=== PATIENT | female | born 1975 | race Caucasian/White ===

== ENCOUNTER 2019-11-29 15:30 | Outpatient (RCR) | payer OTHER, SELFPAY ==
--- NOTE | 2019-10-23 09:35 | PTOPEVAL ---
PHYSICAL THERAPY EVALUATION AND PLAN OF CARE Thank you for referring Mili Hurley to [facility]. I recommend Mili participate in PT 1-2x/week for 3-4weeks. Please review, sign, date and return this plan of care JOSE. I agree with and certify that the following plan of care is medically necessary. Referring Physician Date Attending Provider: Esther Haywood, WATER SUPPLY ENGINEER-BC Evaluation Diagnosis right shoulder pain/neck pain Onset 3 weeks ago Subjective Information Reports that 3 weeks ago she Query Text:As Reported By Patient/ was pulling on a dresser and Family she felt somehting in her right shoulder. Her right shoulder generally has mild chronic pain that she typically does get massages on . Also notes that her neck seems to have restricted motion. Also reports that last week she noticed a heaviness in the right arm when working on the computer. Prior Level of Function Activity Level (Last 3 Months) Hand Dominance Right Pain Scale Used Numeric (1 - 10) Self Report Pain Assessment Right Shoulder(s) Reported Pain Level 5 Pain Description Aching,Heavy Pain Frequency Acute Lowest Pain Intensity 3 Greatest Pain Intensity 9 Other Pain Aggravating Factors computer work; sleeping Cervical Cervical Rotation Right (0-90) 55 Query Text:Active in Degrees Cervical Rotation Left (0-90) 65 Query Text:Active in Degrees Cervical ROM Comments left cervical rotation produces slight thoracic rotation Scapular/ Shoulder Range of Motion Left Shoulder Flexion - Active 50 Shoulder Abduction - Active 155 Right Shoulder Flexion - Active 150 Shoulder Abduction - Active 135 Shoulder Medial Rotation - Active L1 Query Text:Reach Behind the Back Shoulder Lateral Rotation - Active 85 Upper Extremity Muscle Strength Testing Scapular/Shoulder Left Shoulder Flexion Strength 5 Normal Shoulder Abduction Strength 5 Normal Shoulder Medial Rotation Strength 5 Normal Shoulder Lateral Rotation Strength 5 Normal Right Shoulder Flexion Strength 4 Good Shoulder Abduction Strength 4 Good Shoulder Medial Rotation Strength 4+ Good + Shoulder Lateral Rotation Strength 4+ Good + Muscle Length Testing Scalene Group Muscle Length (R) Severe Tightness Query Text: Scalenes Posterior Muscle Length (R) Severe Tightness Query Text:
--- NOTE | 2019-11-15 13:42 | PCPTNOTE ---
Patient called & cancelled scheduled appointment this date due to being sick.
--- NOTE | 2019-11-29 16:39 | PTOPEVAL ---
PHYSICAL THERAPY DISCHARGE NOTE Thank you for referring Mili Hurley to [facility]. Please review, sign, date and return this plan of care JOSE. I agree with and certify that the following plan of care is medically necessary. Referring Physician Date Attending Provider: Esther Haywood, SYSTEM DEVELOPMENT ENGINEER-BC DISCHARGE Diagnosis right shoulder pain/neck pain Onset 7 weeks ago Subjective Information Mili reports that she is Query Text:As Reported By Patient/ feeling much improved. Notes Family that after her last visit she was feeling really great. Admits that she took a few days off of dong her HEP and started to notice symptoms returning. She started to perform her HEP again and noted an improvement. Now understands that she will need to continue HEP. Self Report Pain Level 0 Pain Score Pain Score 0: Self Report Cervical and Lumbar ROM Cervical ROM Cervical Rotation Right (0-90) 65 Query Text:Active in Degrees Cervical Rotation Left (0-90) 65 Query Text:Active in Degrees Upper Extremity Range of Motion Scapular/ Shoulder Range of Motion Left Shoulder Flexion - Active 155 Shoulder Abduction - Active 155 Right Shoulder Flexion - Active 155 Shoulder Abduction - Active 155 Shoulder Medial Rotation - Active T12 Query Text:Reach Behind the Back Shoulder Lateral Rotation - Active 85 Shoulder Lateral Rotation - Active T4 Query Text:Reach Behind the Head Upper Extremity Muscle Strength Testing Scapular/Shoulder Left Shoulder Flexion Strength 5 Normal Shoulder Abduction Strength 5 Normal Shoulder Medial Rotation Strength 5 Normal Shoulder Lateral Rotation Strength 5 Normal Right Shoulder Flexion Strength 4+ Good + Shoulder Abduction Strength 4+ Good + Shoulder Medial Rotation Strength 5 Normal Shoulder Lateral Rotation Strength 5 Normal Muscle Length Testing Scalenes Posterior Muscle Length (R) Moderate Tightness Query Text: Scalenes Anterior Muscle Length (R) Moderate Tightness Query Text: Upper Trapezius Muscle Length (R) Mild Tightness,(L) Mild Tightness Levaetor Scapulae Muscle Length (L) Mild Tightness,(R) Moderate Tightness Muscle Length Testing Comments patient is aware of home exercise program to continue improving muscle length and flexibility Posture Head/C-Spine Postu
== END 2019-11-30 08:45 | disposition home or self-care (01) ==
LOC: ANHPT 15:30
PROVIDERS: PCP Nurse Practitioner Family; Visit Provider Nurse Practitioner Family
DX: T14.8XXD Other injury of unspecified body region, subsequent encounter (principal)
CPT/HCPCS: 97110; 97140; 97161

== ENCOUNTER → 2020-07-16 07:21 | Outpatient (CLI) | payer OTHER, SELFPAY ==
--- NOTE | ~2020-07-16 | MM_ITS ---
EXAMINATION: MM screening [facility] BI w khari HISTORY: Screening mammogram TECHNIQUE: Craniocaudal and mediolateral oblique 3-D tomosynthesis images were obtained and synthetic 2-D images were generated. CAD analysis was submitted and interpreted. COMPARISON: 09/30/2018, 11/03/2016, 03/10/2016, 08/21/2015, 08/20/2015 BREAST PARENCHYMAL COMPOSITION: There are scattered areas of fibroglandular density. FINDINGS: Stable intramammary lymph nodes are noted. There is no evidence of suspicious mass, calcifi cation, or architectural distortion to suggest malignancy in either breast. There has been no suspici ous interval change. IMPRESSION: 1. No mammographic evidence of malignancy. 2. Recommend routine screening mammography in one year. BI-RADS Category 2: Benign finding(s). Reviewed, dictated and finalized at location A. ING [employer] P[employer] HAND
== END ==
PROVIDERS: Visit Provider Obstetrics & Gynecology
DX: Z12.31 Encounter for screening mammogram for malignant neoplasm of breast (principal)
CPT/HCPCS: 77063; 77067

== ENCOUNTER 2021-01-09 12:06 | Outpatient (CLI) | payer OTHER, SELFPAY ==
[2021-01-09 13:03] LABS: Basophils Absolute Auto 0.1 K/mm3 (0.0-0.1); Basophils Percent Auto 0.7 % (0.2-1.2); Eosinophils Absolute Auto 0.1 K/mm3 (0-0.3); Eosinophils Percent Auto 1.9 % (0-4.4); Hematocrit 41.8 % (37.0-47.0); Hemoglobin 13.9 g/dL (12.0-15.0); Immature Granulocyte Absolute 0.02 K/mm3 (0.00-0.031); Immature Granulocyte Percent A 0.3 % (0-0.5); Lymphocytes Absolute Auto 2.77 K/mm3 (0.9-3.2); Lymphocytes Percent Auto 36.7 % (18.3-44.2); Mean Corpuscular HGB Conc 33.3 g/dl (32-36); Mean Corpuscular Hemoglobin 28.8 pg (26-34); Mean Corpuscular Volume 86.7 fl (80-100); Mean Platelet Volume 8.4 fl (7.4-10.4); Monocytes Absolute Auto 0.7 K/mm3 (0.1-0.6); Monocytes Percent Auto 8.6 % (2.6-8.5); Neutrophils Absolute Auto 3.9 K/mm3 (1.3-6.7); Neutrophils Percent Auto 51.8 % (45.5-73.1); Platelet Count Result 314 k/mm3 (150-375); Red Blood Count 4.82 M/mm3 (4.2-5.4); White Blood Count 7.5 K/mm3 (4.5-10.0)
[2021-01-09 13:22] LABS: Alanine Aminotransferase 35 U/L (4-35); Albumin Level 4.7 g/dL (3.5-5.1); Alkaline Phosphatase 91 U/L (38-126); Anion Gap 10 mmol/L (8-16); Aspartate Amino Transferase 38 U/L (14-36); Bilirubin,Total 1.6 mg/dL (0.2-1.3); Blood Urea Nitrogen 15 mg/dL (7-17); Calcium 9.4 mg/dL (8.4-10.2); Carbon Dioxide 27 mmol/L (22-30); Chloride 103 mmol/L (98-107); Estimated Glomerular Filt Rate > 60; Glucose 83 mg/dL (65-105); Potassium 4.2 mmol/L (3.4-5.0); Sodium 140 mmol/L (137-145)
[2021-01-09 13:47] LABS: Free T4 Free Thyroxine 1.23 ng/mL (0.78-2.19)
[2021-01-09 13:57] LABS: Erythrocyte Sedimentation Rate 17 mm/hr (0-20)
[2021-01-09 19:18] LABS: Rheumatoid Factor < 8.6 IU/ML (<12)
[2021-01-13 02:45] LABS: Thyroid Peroxidase Antibodies 18 IU/mL (<9)
[2021-01-13 16:33] LABS: Albumin 4.3 g/dL (3.8-4.8); Alpha 1 Globulin 0.3 g/dL (0.2-0.3); Alpha 2 Globulin 0.7 g/dL (0.5-0.9); Beta 1 Globulin 0.5 g/dL (0.4-0.6); Protein, Total 7.2 g/dL (6.1-8.1)
[2021-01-14 20:14] LABS: Creatinine, Random Urine 86 mg/dL (20-275); Total Protein/Creatinine Ratio 81 mg/g creat (21-161)
[2021-01-14 23:07] LABS: Anti Nuclear Antibody Titer 1:40 (Negative)
== END 2021-01-09 12:07 | disposition home or self-care (01) ==
LOC: ANHLAB 12:10
PROVIDERS: PCP Nurse Practitioner Family
DX: R21 Rash and other nonspecific skin eruption (principal)
CPT/HCPCS: 36415; 80053; 82570; 84155; 84156; 84165; 84166; 84439; 84443; 85025; 85652; 86038; 86039; 86376; 86430

== ENCOUNTER 2021-03-13 11:25 | Outpatient (CLI) | payer OTHER, SELFPAY ==
[2021-03-13 13:19] LABS: Rheumatoid Factor < 8.6 IU/ML (<12)
[2021-03-15 04:15] LABS: Thyroid Peroxidase Antibodies 12 IU/mL (<9)
[2021-03-16 21:07] LABS: Anti Nuclear Antibody Titer 1:40 (Negative)
== END 2021-03-13 11:26 | disposition home or self-care (01) ==
PROVIDERS: PCP Nurse Practitioner Family; Visit Provider Nurse Practitioner Family
DX: R89.9 Unspecified abnormal finding in specimens from other organs, systems and tissues (principal)
CPT/HCPCS: 36415; 84443; 86038; 86039; 86376; 86430

== ENCOUNTER 2021-09-01 07:22 | Outpatient (CLI) | payer OTHER, SELFPAY ==
[2021-09-01 08:56] LABS: Alanine Aminotransferase 21 U/L (4-35); Albumin Level 4.2 g/dL (3.5-5.1); Alkaline Phosphatase 91 U/L (38-126); Anion Gap 6 mmol/L (8-16); Aspartate Amino Transferase 27 U/L (14-36); Bilirubin,Total 0.7 mg/dL (0.2-1.3); Blood Urea Nitrogen 16 mg/dL (7-17); Calcium 8.2 mg/dL (8.4-10.2); Carbon Dioxide 26 mmol/L (22-30); Chloride 107 mmol/L (98-107); Glucose 95 mg/dL (65-110); Potassium 4.1 mmol/L (3.4-5.0); Sodium 139 mmol/L (137-145); Uric Acid 4.1 mg/dL (2.5-7.5)
[2021-09-01 10:35] LABS: Folic Acid 7.3 ng/mL (2.76->20)
[2021-09-03 03:20] LABS: Thyroid Peroxidase Antibodies 7 IU/mL (<9)
[2021-09-03 05:09] LABS: Progesterone 0.3 ng/mL (***); Triiodothyronine T3 Free 2.8 pg/mL (2.3-4.2)
[2021-09-06 22:56] LABS: Estradiol, Ultrasensitive 12 pg/mL
== END 2021-09-01 07:23 | disposition home or self-care (01) ==
PROVIDERS: PCP Nurse Practitioner Family; Visit Provider Internal Medicine Endocrinology, Diabetes & Metabolism
DX: E06.3 Autoimmune thyroiditis (principal); N95.9 Unspecified menopausal and perimenopausal disorder
CPT/HCPCS: 36415; 80053; 82607; 82670; 82746; 84144; 84439; 84443; 84481; 84550; 86376

== ENCOUNTER → 2021-09-02 09:38 | Outpatient (CLI) | payer OTHER, SELFPAY ==
--- NOTE | ~2021-09-02 | US_ITS ---
US thyroid INDICATION: Nontoxic goiter TECHNIQUE: Real-time sonographic images of the thyroid gland were obtained. COMPARISON: No prior studies for comparison. FINDINGS: The right thyroid lobe measures 4.6 x 1.6 x 2.9 cm. The left thyroid lobe measures 4.4 x 1 .5 x 1.2 cm. There is normal echotexture and echogenicity throughout the thyroid gland. No discrete n odules identified. Normal vascular flow is present. IMPRESSION: 1. Normal thyroid without discrete nodule or abnormal vascularity. Reviewed, dictated and finalized at location B. ED FRAMES ASSEMBLER
== END ==
PROVIDERS: PCP Nurse Practitioner Family; Visit Provider Internal Medicine Endocrinology, Diabetes & Metabolism
DX: E04.9 Nontoxic goiter, unspecified (principal)
CPT/HCPCS: 76536

== ENCOUNTER → 2022-01-23 07:14 | Outpatient (CLI) | payer OTHER, SELFPAY ==
--- NOTE | ~2022-01-23 | MM_ITS ---
EXAMINATION: MM screening [facility] BI w khari HISTORY: Screening mammogram TECHNIQUE: Craniocaudal and mediolateral oblique 3-D tomosynthesis images were obtained and synthetic 2-D images were generated. CAD analysis was submitted and interpreted. COMPARISON: 07/16/2020, 09/30/2018 BREAST PARENCHYMAL COMPOSITION: There are scattered areas of fibroglandular density. FINDINGS: RIGHT BREAST: There is a possible mass in the anterior third of the lower breast 4 cm from the nipple . LEFT BREAST: There is no suspicious mass, calcification, or architectural distortion to suggest malig ruth. There has been no significant interval change. IMPRESSION: 1. Possible right breast mass. 2. Additional mammographic views and possible breast ultrasound are recommended. BI-RADS Category 0: Incomplete: Needs additional imaging evaluation. Reviewed, dictated and finalized at location A. IMPRESSION: 1. Possible right breast mass. 2. Additional mammographic views and possible breast ultrasound are recommended . BI-RADS Category 0: Incomplete: Needs additional imaging evaluation.
== END ==
PROVIDERS: PCP Nurse Practitioner Family; Visit Provider Obstetrics & Gynecology
DX: Z12.31 Encounter for screening mammogram for malignant neoplasm of breast (principal); R92.8 Other abnormal and inconclusive findings on diagnostic imaging of breast
CPT/HCPCS: 77063; 77067

== ENCOUNTER → 2022-03-02 09:33 | Outpatient (CLI) | payer OTHER, SELFPAY ==
--- NOTE | ~2022-03-02 | MMUS_ITS ---
EXAMINATION: MM diagnostic [facility] RT w khari, US breast RT limited HISTORY: Follow-up right breast asymmetry TECHNIQUE: Additional 3-D tomosynthesis images of the right breast were performed and synthetic 2-D i mages were generated. CAD analysis was submitted and interpreted. High resolution Limited right breas t ultrasound was performed. COMPARISON: Comparison to multiple prior studies sequentially, with oldest reviewed study dated 11/03. BREAST PARENCHYMAL COMPOSITION: Breast composed of scattered areas of fibroglandular density. FINDINGS: MAMMOGRAPHIC FINDINGS: There is a small mass in the lower central aspect of the right breast anteriorly. There are no suspic ious calcifications or architectural distortion. ULTRASOUND: Limited right breast ultrasound: At 7:00, 4 cm from the nipple there is an oval hypoechoic mass measu ring 7 x 3 x 2 mm with echogenic hilum, most likely benign intramammary lymph node. There is a small cyst at 9:00, 4 cm from the nipple measuring 2 mm. IMPRESSION: 1. Probable benign right breast mass located at 7:00, 4 cm from the nipple. 2. Recommend 6 month follow-up Limited right breast ultrasound. BI-RADS category 3, probably benign findings. Reviewed, dictated and finalized at location A. IMPRESSION: 1. Probable benign right breast mass located at 7:00, 4 cm from the nipple. 2. Recommend 6 month follow-up Limited right breast ultrasound. BI-RADS category 3, probably benign findings.
== END ==
PROVIDERS: PCP Obstetrics & Gynecology; Visit Provider Obstetrics & Gynecology
DX: R92.8 Other abnormal and inconclusive findings on diagnostic imaging of breast (principal)
CPT/HCPCS: 76642; 77061; 77065; G0279

== ENCOUNTER 2022-03-03 08:14 | Outpatient (CLI) | payer OTHER, SELFPAY ==
[2022-03-03 19:12] LABS: Alanine Aminotransferase 16 U/L (6-35); Albumin Level 4.7 g/dL (3.5-5.1); Alkaline Phosphatase 109 U/L (38-126); Anion Gap 11 mmol/L (8-16); Aspartate Amino Transferase 30 U/L (14-36); Bilirubin,Total 1.3 mg/dL (0.2-1.3); Blood Urea Nitrogen 13 mg/dL (7-17); Carbon Dioxide 28 mmol/L (22-30); Chloride 102 mmol/L (98-107); Estimated Glomerular Filt Rate > 60; Glucose 96 mg/dL (65-110); Potassium 4.4 mmol/L (3.4-5.0); Sodium 141 mmol/L (137-145)
[2022-03-05 20:18] LABS: Triiodothyronine T3 Free 3.1 pg/mL (2.3-4.2)
== END 2022-03-03 08:15 | disposition home or self-care (01) ==
LOC: ANHGOSHLAB 08:18
PROVIDERS: PCP Obstetrics & Gynecology; Visit Provider Nurse Practitioner
DX: E02 Subclinical iodine-deficiency hypothyroidism (principal)
CPT/HCPCS: 36415; 80053; 84439; 84443; 84481

== ENCOUNTER 2022-08-25 08:41 | Outpatient (CLI) | payer OTHER, SELFPAY ==
[2022-08-25 15:42] LABS: Alanine Aminotransferase 15 U/L (6-35); Albumin Level 4.3 g/dL (3.5-5.1); Alkaline Phosphatase 101 U/L (38-126); Anion Gap 5 mmol/L (8-16); Aspartate Amino Transferase 26 U/L (14-36); Bilirubin,Total 1.2 mg/dL (0.2-1.3); Blood Urea Nitrogen 15 mg/dL (7-17); Calcium 8.6 mg/dL (8.4-10.2); Carbon Dioxide 30 mmol/L (22-30); Chloride 103 mmol/L (98-107); Estimated Glomerular Filt Rate > 60; Glucose 93 mg/dL (65-110); Potassium 4.3 mmol/L (3.4-5.0); Sodium 138 mmol/L (137-145)
[2022-08-25 19:13] LABS: Free T4 Free Thyroxine 1.31 ng/mL (0.78-2.19)
[2022-08-29 04:13] LABS: Triiodothyronine T3 Free 3.2 pg/mL (2.3-4.2)
== END 2022-08-25 08:42 | disposition home or self-care (01) ==
LOC: ANHGOSHLAB 08:43
PROVIDERS: PCP Obstetrics & Gynecology; Visit Provider Nurse Practitioner
DX: E02 Subclinical iodine-deficiency hypothyroidism (principal)
CPT/HCPCS: 36415; 80053; 84439; 84443; 84481

== ENCOUNTER → 2022-09-25 11:00 | Outpatient (CLI) | payer SELFPAY ==
--- NOTE | ~2022-09-25 | US_ITS ---
US breast RT limited DATE: 09/25/2022 11:31 INDICATION: Six-month limited right breast ultrasound follow-up for probable benign right breast mass at 7:00 4 cm from nipple TECHNIQUE: Targeted ultrasound of lower inner and outer quadrants of right breast COMPARISON: 09/30/2021 diagnostic right mammogram and limited right breast ultrasound 01/23/2022 bilateral screening mammogram FINDINGS: There is a parallel circumscribed 1.8 x 5.5 x 3.1 mm hypoechoic lesion, stable or slightly diminished in size since 03/02/2022. No internal vascularity or posterior shadowing is noted. The sono graphic appearance is benign. IMPRESSION: BI-RADS Category 2: Benign Recommendation: Routine annual mammographic screening in January 2023 Reviewed, dictated and finalized at Location A. Reviewed, dictated and finalized at location A.
== END ==
PROVIDERS: PCP Obstetrics & Gynecology; Visit Provider Obstetrics & Gynecology
DX: R92.8 Other abnormal and inconclusive findings on diagnostic imaging of breast (principal)
CPT/HCPCS: 76642

== ENCOUNTER → 2023-02-26 11:50 | Outpatient (CLI) | payer OTHER, SELFPAY ==
--- NOTE | ~2023-02-26 | MM_ITS ---
EXAMINATION: MM screening [facility] BI w khari HISTORY: Screening TECHNIQUE: Craniocaudal and mediolateral oblique 3-D tomosynthesis images were obtained and synthetic 2-D images were generated. CAD analysis was submitted and interpreted. COMPARISON: Comparison to multiple prior studies sequentially, with oldest reviewed study dated 03/10. BREAST PARENCHYMAL COMPOSITION: Breast composed of scattered areas of fibroglandular density FINDINGS: There is no evidence of suspicious mass, calcification, or architectural distortion to sugg est malignancy in either breast. There has been no suspicious interval change. IMPRESSION: 1. No mammographic evidence of malignancy. 2. Recommend routine screening mammography in one year. BI-RADS Category 1: Negative Reviewed, dictated and finalized at location A.
== END ==
PROVIDERS: PCP Obstetrics & Gynecology; Visit Provider Obstetrics & Gynecology
DX: Z12.31 Encounter for screening mammogram for malignant neoplasm of breast (principal)
CPT/HCPCS: 77063; 77067

== ENCOUNTER 2023-04-13 09:19 | Outpatient (CLI) | payer OTHER, SELFPAY ==
[2023-04-13 19:00] LABS: Free T4 Free Thyroxine 1.09 ng/mL (0.78-2.19)
[2023-04-13 19:17] LABS: Alanine Aminotransferase 15 U/L (6-35); Albumin Level 4.4 g/dL (3.5-5.1); Alkaline Phosphatase 90 U/L (38-126); Anion Gap 7 mmol/L (8-16); Aspartate Amino Transferase 31 U/L (14-36); Bilirubin,Total 1.4 mg/dL (0.2-1.3); Blood Urea Nitrogen 14 mg/dL (7-17); Calcium 8.9 mg/dL (8.4-10.2); Carbon Dioxide 30 mmol/L (22-30); Chloride 102 mmol/L (98-107); Estimated Glomerular Filt Rate > 60; Glucose 80 mg/dL (65-110); Potassium 4.4 mmol/L (3.4-5.0); Sodium 139 mmol/L (137-145)
[2023-04-13 19:40] LABS: Total Triiodothyronine (T3) 1.35 NG/ML (0.97-1.69)
[2023-04-13 20:16] LABS: Folic Acid 8.3 ng/mL (2.76->20)
[2023-04-16 03:43] LABS: Thyroid Peroxidase Antibodies 14 IU/mL (<9)
[2023-04-16 05:29] LABS: Triiodothyronine T3 Free 3.6 pg/mL (2.3-4.2)
== END 2023-04-13 09:20 | disposition home or self-care (01) ==
LOC: ANHGOSHLAB 09:21
PROVIDERS: PCP Obstetrics & Gynecology; Visit Provider Internal Medicine Endocrinology, Diabetes & Metabolism
DX: E03.9 Hypothyroidism, unspecified (principal)
CPT/HCPCS: 36415; 80053; 82607; 82746; 84436; 84439; 84443; 84480; 84481; 86376

== ENCOUNTER 2023-09-07 08:21 | Outpatient (CLI) | payer OTHER, SELFPAY ==
[2023-09-07 18:37] LABS: Alanine Aminotransferase 13 U/L (6-35); Albumin Level 4.4 g/dL (3.5-5.1); Alkaline Phosphatase 91 U/L (38-126); Anion Gap 5 mmol/L (8-16); Aspartate Amino Transferase 35 U/L (14-36); Bilirubin,Total 1.1 mg/dL (0.2-1.3); Blood Urea Nitrogen 13 mg/dL (7-17); Calcium 9.3 mg/dL (8.4-10.2); Carbon Dioxide 30 mmol/L (22-30); Chloride 104 mmol/L (98-107); Cholesterol 174 mg/dL (0-200); Estimated Glomerular Filt Rate > 60; Glucose 63 mg/dL (65-110); HDL Direct 58 mg/dL; Potassium 4.2 mmol/L (3.4-5.0); Sodium 139 mmol/L (137-145); Triglycerides 70 mg/dL (<150)
[2023-09-07 18:42] LABS: Hematocrit 44.8 % (37.0-47.0); Mean Corpuscular HGB Conc 31.3 g/dl (32-36); Mean Corpuscular Hemoglobin 28.8 pg (26-34); Mean Corpuscular Volume 92.2 fl (80-100); Mean Platelet Volume 8.7 fl (7.4-10.4); Platelet Count Result 371 k/mm3 (150-375); Red Blood Count 4.86 M/mm3 (4.2-5.4); Red Cell Distribution Width 13.4 % (11.5-14.5); White Blood Count 6.9 K/mm3 (4.5-10.0)
[2023-09-07 18:48] LABS: LDL Cholesterol Direct 89 mg/dL
[2023-09-07 20:23] LABS: Hemoglobin A1C 5.3 % (<5.7)
== END 2023-09-07 08:22 | disposition home or self-care (01) ==
PROVIDERS: PCP Nurse Practitioner Family; Visit Provider Nurse Practitioner Family
DX: E03.9 Hypothyroidism, unspecified (principal); Z13.1 Encounter for screening for diabetes mellitus; Z13.220 Encounter for screening for lipoid disorders; Z13.0 Encounter for screening for diseases of the blood and blood-forming organs and certain disorders involving the immune mechanism; Z12.11 Encounter for screening for malignant neoplasm of colon
CPT/HCPCS: 36415; 80053; 80061; 83036; 84443; 85027

== ENCOUNTER 2024-06-15 08:23 | Emergency (ER) | payer OTHER, SELFPAY ==
--- NOTE | ~2024-06-15 | XR_ITS ---
EXAMINATION: XR chest 2V DATE: 06/15/2024 09:25 INDICATION: Cough. Shortness of breath. TECHNIQUE: Frontal and lateral views of the chest were obtained. COMPARISON: Chest 2 views 06/14/2019 FINDINGS: There is no pneumonia, pleural effusion, or pneumothorax. The heart size is normal. IMPRESSION: 1. No acute cardiopulmonary disease. Reviewed, dictated and finalized at location A. S REPRESENTATIVE [employer]
[2024-06-15 08:40] VITALS: BP 121/75; PULSE 79; RESP 18; TEMP 36.9; O2SAT 100
--- NOTE | 2024-06-15 09:10 | ED_ITS ---
HPI - URI/Sore Throat General Chief Complaint: Upper Respiratory Infection Stated Complaint: cough / cold Time Seen by Provider: 06/15/24 09:01 Source: patient and RN notes reviewed Mode of arrival: ambulatory Limitations: no limitations History of Present Illness HPI Narrative: Patient presents today with a one-week history of cough, postnasal drip, sore throat, headache, nasal congestion, fatigue. Over the last several days she has developed some sweats with exertion as well as chest tightness. She has had 2- COVID tests. Reports she thought symptoms were getting better for 5 days ago, but have worsened. She has tried Tylenol, cold and sinus medication, DayQuil without much relief. No history of asthma or COPD. She is a nonsmoker. Daughter was recently diagnosed with pneumonia. Related Data Allergies Allergy/AdvReac Type Severity Reaction Status Date / Time azithromycin Allergy Intermediate Hives / Verified 06/15/24 08:42 Red Face codeine Allergy Unknown Hives Verified 06/15/24 08:42 Review of Systems Review of Systems: CONSTITUTIONAL: Denies body aches, fever, chills. + sweats, fatigue EYES: Denies visual changes, redness, or discharge. ENT: Denies rhinorrhea, or otalgia.+ congestion, sore throat CARDIOVASCULAR: Denies chest pain, palpitations, or edema. RESPIRATORY: + cough, chest tightness GASTROINTESTINAL: Denies abdominal pain, nausea, vomiting, or diarrhea. GENITOURINARY: Denies dysuria or hematuria. SKIN: Denies rash, itching, or wounds. MUSCULOSKELETAL: Denies back pain, joint pain, or myalgia. NEUROLOGIC: Denies numbness, tingling, or weakness.+ headache PSYCH: Denies depression or anxiety. [facility] Past Medical History Medical History Dystocia Headache Hypothyroidism Obese Seasonal allergies Surgical History Surgical History Hx of section x2 Family History Family History Mother Thyroid disease Social History Social History Social History: 06/12/24 very confident with medical forms Smoking status: Never smoker Alcohol intake: never Substance use: never Substance use type: does not use Do You Feel Safe in your Home?: Yes Lack of Transportation: No Lack of Food: Never True Current Housing: I Have Housing Concerned About Future Housing: No Difficulty Paying Gas/Electric Bills: No Difficulty Paying for Meds: No Currently Unemployed: No Education: Bachelor's Degree Difficulty w/ Childcare or Family Care: No Living arrangements: with family Occupation/Education: occupation Gender identity (if verbalized by the patient): Female Comments At time of signature, I have reviewed and agree with nursing past medical, surgical, social and family history unless otherwise noted. Please see nursing chart for further information. There is no relevant family history pertinent to the presenting complaint Exam Narrative: GENERAL: Mildly ill-appearing, well-nourished, and in no acute distress. HEAD: Normocephalic, atraumatic. EYES: EOMI. No redness or drainage. Conjunctivae normal. ENT: Mucous membranes pink and moist. Nares congested with rhinorrhea. TMs normal bilaterally. Throat normal. Uvula midline. NECK: Normal AROM. Supple. No lymphadenopathy. CHEST: No respiratory distress. Slight inspiratory wheeze in the left upper lung zone. Mild Decreased aeration throughout. HEART: Regular rate and rhythm. No murmur appreciated. EXTREMITIES: Normal range of motion. No edema. SKIN: Warm, dry, no rash. Capillary refill normal. Normal skin turgor. NEURO: No focal deficits. Alert and oriented x3. Gait steady. PSYCH: Normal affect. No signs of depression or anxiety. Course Course Level of Care: Express Care Visit Vital Signs Vital signs: Vital Signs Temperature 98.4 F 06/15/24 08:40 Pulse Rate 79 06/15/24 08:40 Respiratory Rate 18 06/15/24 08:40 Blood Pressure 121/75 06/15/24 08:40 Pulse Oximetry 100 06/15/24 08:40 Oxygen Delivery Room Air 06/15/24 08:40 Temperature 98.4 F 06/15/24 08:40 Pulse Rate 79 06/15/24 08:40 Respiratory Rate 18 06/15/24 08:40 Blood Pressure 121/75 06/15/24 08:40 Pulse Oximetry 100 06/15/24 08:40 Oxygen Delivery Room Air 06/15/24 08:40 Reviewed MDM - URI/Sore Throat MDM Narrative Medical decision making narrative: Devan has helped increased aeration. Patient states she feels that she can take a deeper breath. Chest x-ray negative. Prescription for prednisone and an albuterol inhaler sent to pharmacy. Anticipatory guidance given. Differential Diagnosis Differential diagnosis: Likely upper respiratory infection, viral infection, bronchitis and other (Pneumonia) Imaging Data Radiologist's impression: ITS Impressions Chest X-Ray 06/15/24 09:26 IMPRESSION: 1. No acute cardiopulmonary disease. Critical Care Time Critical Care Time Critical Care Time: No Discharge Plan Discharge Clinical Impression: Bronchitis Upper respiratory infection Qualifiers: URI type: unspecified URI Qualified Code(s): J06.9 - Acute upper respiratory infection, unspecified Patient Disposition: Home, Self-Care Condition: Stable Instructions: Upper Respiratory Infection (DC), Acute Bronchitis (ED) Additional Instructions: Your chest x-ray is negative for pneumonia. Please take the prednisone and us e albuterol inhaler as directed. Your symptoms are likely due to a viral illness, which is not treated with antibiotics. Virus symptoms can last for up to 7-10days. Take Tylenol or ibuprofen for pain or fever. Rest and stay hydrated. Follow up with your PCP in 7 days if symptoms are not improving. Go to the ER immediately if you develop shortness of breath, difficulty swallowing, or any other concerning symptoms. Your blood pressure was elevated above 120/80 today at Urgent Care. This puts you above the threshold for follow up. Please schedule a followup visit with your personal physician as soon as possible, for further evaluation and treatment. Even blood pressure exceeding 120/80 may indicate pre-hypertension. Prescriptions: New albuterol sulfate 90 mcg/actuation HFA aerosol inhaler 2 inh inhalation Q4-6H PRN (Reason: shortness of breath or wheezing) Qty: 8.5 0RF (DME) [employer] MDI Spacer Spacer See Rx Instructions .ROUTE .MEDSUPPLY Qty: 1 0RF Rx Instructions: As directed prednisone 20 mg tablet 40 mg PO DAILY 5 Days Qty: 10 0RF No Action levothyroxine [Synthroid] 25 mcg tablet 25 mcg PO DAILY Qty: 90 1RF Rx Instructions: Synthroid Delivers Program Follow-up/Referrals: Esther Haywood APRN [Primary Care Provider] - Time of Disposition: 09:54
[2024-06-15] MEDS: ALBUTEROL SULFATE NEB 2.5 MG/3 ML INH INHALATION (09:30)
[2024-06-15] MEDS: IPRATROPIUM BR 0.02% INH SOLN 0.5 MG/2.5 ML VIAL INHALATION (09:30)
== END 2024-06-15 09:58 | disposition home or self-care (01) ==
PROVIDERS: Emergency Provider Nurse Practitioner; PCP Nurse Practitioner Family
DX: J40 Bronchitis, not specified as acute or chronic (principal); J06.9 Acute upper respiratory infection, unspecified; E03.9 Hypothyroidism, unspecified; E66.9 Obesity, unspecified; Z68.29 Body mass index [BMI] 29.0-29.9, adult
CPT/HCPCS: 71046; 94640; 99213; G0463

== ENCOUNTER 2024-10-28 11:42 | Outpatient (CLI) | payer OTHER, SELFPAY ==
--- NOTE | ~2024-10-28 | MM_ITS ---
EXAMINATION: MM screening [facility] BI w khari HISTORY: Screening TECHNIQUE: Craniocaudal and mediolateral oblique 3-D tomosynthesis images were obtained and synthetic 2-D images were generated. CAD analysis was submitted and interpreted. COMPARISON: Comparison to multiple prior studies sequentially, with oldest reviewed study dated 11/03. BREAST PARENCHYMAL COMPOSITION: Not dense: There are scattered areas of fibroglandular density. FINDINGS: There is no evidence of suspicious mass, calcification, or architectural distortion to sugg est malignancy in either breast. There has been no suspicious interval change. IMPRESSION: 1. No mammographic evidence of malignancy. 2. Recommend routine screening mammography in one year. BI-RADS Category 1: Negative Reviewed, dictated and finalized at location A.
== END 2024-10-28 11:43 | disposition home or self-care (01) ==
PROVIDERS: PCP Nurse Practitioner Family; Visit Provider Nurse Practitioner Family
DX: Z12.31 Encounter for screening mammogram for malignant neoplasm of breast (principal)
CPT/HCPCS: 77063; 77067